=== PATIENT | female | born 1935 | race Caucasian/White ===

== ENCOUNTER 2016-08-23 23:39 | Emergency (ER) | payer MEDICARE, BC ==
--- NOTE | 2016-08-24 01:56 | EDM.PDOC ---
ED HPI GENERAL MEDICAL PROBLEM - General Chief Complaint: ENT Problem Stated Complaint: NOSE BLEED Time Seen by Provider: 08/24/16 01:52 Source of Information: Reports: Patient, Family, RN Notes Reviewed History Limitations: Reports: No Limitations - History of Present Illness INITIAL COMMENTS - FREE TEXT/NARRATIVE: 80-year-old female presents emergency department day complaint of nosebleed she does take Coumadin recently had her dose increased last time the INR was checked was 1 month ago this particular nosebleed started earlier today she has blown several times does have a nose clamp on place for extended period time as well unfortunately she's been unable to stop the nosebleed denies pain Pain Score (Numeric/FACES): 0 - Related Data Allergies Allergy/AdvReac Type Severity Reaction Status Date / Time amoxicillin trihydrate Allergy Diarrhea Verified 04/01/13 12:41 [From Augmentin] hydrochlorothiazide Allergy Hives Verified 04/01/13 12:41 neomycin [Neomycin] Allergy Cannot Verified 04/01/13 12:41 Remember potassium clavulanate Allergy Diarrhea Verified 04/01/13 12:41 [From Augmentin] Home Meds: Home Meds Aspirin 81 mg PO DAILY 03/30/13 [History] Calcium Carbonate 500 mg PO TID 03/30/13 [History] Cholecalciferol 1 cap PO DAILY 03/30/13 [History] Cinnamon 1 tab PO ASDIRECTED 03/30/13 [History] Flaxseed 1 tab PO BID 03/30/13 [History] Npgpbdoarwu-Gdbxqajcu-Hpur-Mn 1 cap PO DAILY 03/30/13 [History] Multiple Vitamin 1 tab PO DAILY 03/30/13 [History] [place] 3 1,000 mg PO DAILY 03/30/13 [History] Red Yeast Rice Extract 600 mg PO DAILY 03/30/13 [History] Tramadol Hcl 50 mg PO QID PRN 03/30/13 [History] Warfarin Sodium 10 mg PO DAILY 03/30/13 [History] Past Medical History Respiratory History: Reports: PE Genitourinary History: Reports: Renal Calculus Musculoskeletal History: Reports: Fracture 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 - Past Surgical History GI Surgical History: Reports: Appendectomy, Hernia, Inguinal Musculoskeletal Surgical History: Reports: Knee Replacement Social & Family History - Tobacco Use Smoking Status *Q: Never Smoker Second Hand Smoke Exposure: No - Alcohol Use Days Per Week of Alcohol Use: 0 - Recreational Drug Use Recreational Drug Use: No ED ROS ENT - Review of Systems Review Of Systems: See Below Constitutional: Reports: No Symptoms HEENT: Reports: Ear Discharge Respiratory: Reports: No Symptoms Cardiovascular: Reports: No Symptoms ED EXAM, ENT - Physical Exam Exam: See Below Text/Narrative:: Initial examination of the nose after blowing out several clots I cannot appreciate the source of bleeding is family through the left nare Exam Limited By: No Limitations General Appearance: Alert, Moderate Distress (. He doesn't need to be seen to go to detox does he you can just the way second your telling me to go to [place] they will not accept anybody everybody's ever undergoes department has to go through the emergency department as well as our your telling me yet we don't have a patient he is his of his family member is probably the) ED ENT PROCEDURES - Epistaxis Procedure Indication: Epistaxis Recent anticoagulants/antiplatlets: Yes Uncontrolled HTN: No Recent septal/nasal surgery: No Site of bleeding: Left Nare Clearing of clots: Patient Blew Nose Ice pack to area: No Anterior Packing: Nasal Tampon Posterior packing: Long Nasal Tampon Complications: No Course - Vital Signs Last Recorded V/S: Last Vital Signs Temp 96.2 F 08/24/16 01:30 Pulse 80 08/24/16 02:05 Resp 16 08/24/16 02:05 BP 144/95 H 08/24/16 02:05 Pulse Ox 94 L 08/24/16 02:05 - Orders/Labs/Meds Labs: Laboratory Tests 08/24/16 08/24/16 Range/Units 02:04 02:04 WBC 7.0 (4.5-11.0) K/uL RBC 4.58 (3.30-5.50) M/uL Hgb 14.2 (12.0-15.0) g/dL Hct 43.5 (36.0-48.0) % MCV 95 (80-98) fL MCH 31 (27-31) pg MCHC 33 (32-36) % Plt Count 240 (150-400) K/uL Neut % (Auto) 52 (36-66) % Lymph % (Auto) 31 (24-44) % [place] % (Auto) 12 H (2-6) % Eos % (Auto) 5 H (2-4) % Baso % (Auto) 1 (0-1) % PT 34.3 H (9.5-12.0) sec INR 3.06 H (0.80-1.20) Departure - Departure Time of Disposition: 02:57 Disposition: Home, Self-Care 01 Condition: Good Clinical Impression: Epistaxis - Discharge Information Forms: ED Department Discharge Additional Instructions: Hold your Coumadin until reevaluated by the Coumadin nurse, please follow-up with your primary care provider on Friday or Friday for reevaluation of nosebleeds - Assessment/Plan Plan: Assessment Acuity = acute Site and laterality = epistaxis complicating the patient with 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 This note was dictated using [employer] voice recognition software please call with any questions.
[2016-08-24 03:14] VITALS: BP 155/82
[2016-08-24] MEDS ORDERED: Oxymetazoline 0.05% Nasal Spray 15 ML Bottle ONE (03:23)
[2016-08-24] MEDS ORDERED: Oxymetazoline 0.05% Nasal Spray 15 ML Bottle NAS ONE (03:30)
== END 2016-08-24 03:17 | disposition home or self-care (01) ==
LOC: JP.ED 23:39
PROC: 2Y41X5Z Packing of Nasal Region using Packing Material (ICD-10-PCS; principal; 2016-08-23)
DX: R04.0 Epistaxis (principal); Z88.1 Allergy status to other antibiotic agents; Z88.8 Allergy status to other drugs, medicaments and biological substances; Z79.82 Long term (current) use of aspirin; Z79.899 Other long term (current) drug therapy; Z96.659 Presence of unspecified artificial knee joint; Z90.49 Acquired absence of other specified parts of digestive tract; Z79.01 Long term (current) use of anticoagulants
CPT/HCPCS: 30901; 30903; 30905; 36415; 85025; 85610; 99282-25; 99283-25

== ENCOUNTER 2016-11-15 22:59 | Emergency (ER) | payer MEDICARE, BC ==
[2016-11-15 23:32] VITALS: BP 176/102
--- NOTE | 2016-11-16 01:02 | EDM.PDOC ---
ED HPI GENERAL MEDICAL PROBLEM - General Chief Complaint: ENT Problem Stated Complaint: BLOODY NOSE Time Seen by Provider: 11/15/16 23:12 Source of Information: Reports: Patient History Limitations: Reports: Physical Impairment - History of Present Illness INITIAL COMMENTS - FREE TEXT/NARRATIVE: This patient comes in because of a recurrent nosebleed. Her nose has bled a couple of times over the past few days but she's always been able to stop it by putting pressure on the end of her nose. Today it doesn't seem to want to stop. She did have a bleed some time in the past and had to have the thing packed she said back then the balloons didn't work. She takes Coumadin because of history of previous pulmonary emboli. Yesterday her INR was 2.8 and her provider had her stop the Coumadin but she was not given instructions when to restart it. 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) - Related Data Allergies Allergy/AdvReac Type Severity Reaction Status Date / Time amoxicillin trihydrate Allergy Diarrhea Verified 11/15/16 23:09 [From Augmentin] hydrochlorothiazide Allergy Hives Verified 11/15/16 23:09 neomycin [Neomycin] Allergy Cannot Verified 11/15/16 23:09 Remember potassium clavulanate Allergy Diarrhea Verified 11/15/16 23:09 [From Augmentin] Home Meds: Home Meds Aspirin 81 mg PO DAILY 03/30/13 [History] Calcium Carbonate 500 mg PO TID 03/30/13 [History] Cholecalciferol 1 cap PO DAILY 03/30/13 [History] Cinnamon 1 tab PO ASDIRECTED 03/30/13 [History] Flaxseed 1 tab PO BID 03/30/13 [History] Gdehnkzjgkw-Caceatvjw-Bxmr-Mn 1 cap PO DAILY 03/30/13 [History] Multiple Vitamin 1 tab PO DAILY 03/30/13 [History] [place] 3 1,000 mg PO DAILY 03/30/13 [History] Red Yeast Rice Extract 600 mg PO DAILY 03/30/13 [History] Tramadol Hcl 50 mg PO QID PRN 03/30/13 [History] Warfarin Sodium 10 mg PO DAILY 03/30/13 [History] Past Medical History HEENT History: Reports: Epistaxis, Impaired Vision Respiratory History: Reports: PE Gastrointestinal History: Reports: None Genitourinary History: Reports: Renal Calculus [employer] History: Reports: Musculoskeletal History: Reports: Fracture Oncologic (Cancer) History: Reports: Other (See Below) 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 ED EXAM, ENT - Physical Exam Exam: See Below Exam Limited By: No Limitations General Appearance: Alert, WD/WN, Moderate Distress Nose: Other (She's having a fairly brisk bleed from the left nostril exam is difficult because she's constantly wiping her nose. Eventually I did manage to clean off the septum in the left nostril and note that there was no bleeding from there. All blood is coming from posteriorly.) Course - Vital Signs Last Recorded V/S: Last Vital Signs Temp 36.1 C 11/15/16 23:05 Pulse 93 11/15/16 23:29 Resp 18 11/15/16 23:29 BP 176/102 H 11/15/16 23:29 Pulse Ox 93 L 11/15/16 23:29 - Re-Assessments/Exams Free Text/Narrative Re-Assessment/Exam: 11/16/16 07:04 A posterior epistaxis was identified. A 7.5 cm rapid Rhino was inserted. She did have some pain on insertion of last couple of centimeters seemed to tolerate this well. The balloon was inflated until the portal the point of discomfort and bleeding stopped. She was observed for about an hour and had no more bleeding. I contacted Dr. Buckner and he felt it would be okay to leave it in until Friday when he could see her in clinic. He suggested we put her on antibiotics also. He suggested amoxicillin and ampicillin but she is allergic to that so I put her on azithromycin Departure - Departure Time of Disposition: 00:57 Disposition: Home, Self-Care 01 Condition: Fair Clinical Impression: Posterior epistaxis - Discharge Information Instructions: Nosebleed, [id number] Referrals: PCP,None [Primary Care Provider] - Forms: ED Department Discharge Additional Instructions: You will need to follow-up with an ear nose and throat doctor (ENT) on Friday to get the packing removed. I spoke with at the [facility] in [place] and she or one of his colleagues can see you on Friday morning. The clinic is located at [address] [place] [address]. If you wish to see an ENT doctor somewhere else you are welcome to. You should take an antibiotic to prevent an infection. I have prescribed azithromycin 250 mg once daily. Try to contact the Coumadin nurse tomorrow. If you're unable to do this then go ahead and restart your usual dose And follow-up with the Coumadin nurse as planned
== END 2016-11-16 01:11 | disposition home or self-care (01) ==
LOC: JP.ED 22:59
DX: R04.0 Epistaxis (principal); Z87.442 Personal history of urinary calculi; Z96.659 Presence of unspecified artificial knee joint; Z90.49 Acquired absence of other specified parts of digestive tract; Z98.890 Other specified postprocedural states; Z79.82 Long term (current) use of aspirin; Z79.899 Other long term (current) drug therapy; Z88.1 Allergy status to other antibiotic agents; Z88.8 Allergy status to other drugs, medicaments and biological substances
CPT/HCPCS: 30903; 99283; A4217

== ENCOUNTER 2019-02-27 19:02 | Emergency (ER) | payer MEDICARE, BC ==
--- NOTE | 2019-02-27 20:28 | EDM.PDOC ---
ED HPI GENERAL MEDICAL PROBLEM - General Chief Complaint: Fever Stated Complaint: POSSIBLE CELLULITIS AND FEVER Time Seen by Provider: 02/27/19 20:19 Source of Information: Reports: Patient History Limitations: Reports: No Limitations - History of Present Illness INITIAL COMMENTS - FREE TEXT/NARRATIVE: Patient presents for evaluation of progressive right facial redness and swelling since earlier this week. She has an upper denture plate and when placing it in her mouth earlier this week, it slipped and apparently scraped an area of the front part of her gums. Since that time she's had increasing pain and redness and swelling. She was seen in the clinic yesterday and started on clindamycin 300 mg 3 times daily but her symptoms have continued to progress despite being on those antibiotics. She's had some low-grade temperatures in the 99 range although patient and family states that she normally has a much lower normal temperature. Because of the increasing discomfort, she presented tonight. Onset: Gradual Duration: Day(s): (4) Quality: Reports: Ache, Dull Severity: Moderate Improves with: Reports: None Worsens with: Reports: Eating Associated Symptoms: Reports: Fever/Chills, Malaise - Related Data Allergies Allergy/AdvReac Type Severity Reaction Status Date / Time amoxicillin trihydrate Allergy Diarrhea Verified 02/27/19 20:11 [From Augmentin] hydrochlorothiazide Allergy Hives Verified 02/27/19 20:11 neomycin [Neomycin] Allergy Cannot Verified 02/27/19 20:11 Remember potassium clavulanate Allergy Diarrhea Verified 02/27/19 20:11 [From Augmentin] Home Meds: Home Meds Aspirin 81 mg PO DAILY 03/30/13 [History] Calcium Carbonate 1,000 mg PO BID 03/30/13 [History] Cholecalciferol 1 cap PO DAILY 03/30/13 [History] Cinnamon 1 tab PO ASDIRECTED 03/30/13 [History] Flaxseed 1 tab PO BID 03/30/13 [History] Bhebfxbzxgl-Mndqbuznk-Szbn-Mn 1 cap PO DAILY 03/30/13 [History] Multiple Vitamin 1 tab PO DAILY 03/30/13 [History] [place] 3 1,000 mg PO DAILY 03/30/13 [History] Red Yeast Rice Extract 600 mg PO DAILY 03/30/13 [History] Warfarin Sodium 1.5 tab PO DAILY 03/30/13 [History] Clindamycin HCl [Cleocin] 300 mg PO Q8H 02/27/19 [History] Metoprolol Tartrate 1 tab PO BID 02/27/19 [History] Past Medical History HEENT History: Reports: Epistaxis, Impaired Vision Cardiovascular History: Reports: Blood Clots/VTE/DVT, Hypertension Respiratory History: Reports: PE Gastrointestinal History: Reports: None Genitourinary History: Reports: Renal Calculus [employer] History: Reports: Musculoskeletal History: Reports: Fracture Neurological History: Reports: Migraines Endocrine/Metabolic History: Reports: Other (See Below) Other Endocrine/Metabolic History: goiter removed from thyroid Hematologic History: Reports: Anticoagulation Therapy Oncologic (Cancer) History: Reports: Other (See Below) 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 partial hysterectomy Musculoskeletal Surgical History: Reports: Knee Replacement Dermatological Surgical History: Reports: None Social & Family History - Tobacco Use Smoking Status *Q: Unknown Ever Smoked - Caffeine Use Caffeine Use: Reports: Coffee, Soda ED ROS ENT - Review of Systems Review Of Systems: See Below Constitutional: Reports: Fever, Chills, Malaise HEENT: Reports: Dental Pain Respiratory: Reports: No Symptoms Cardiovascular: Reports: No Symptoms Skin: Reports: Erythema (Right maxillary region.) ED EXAM, ENT - Physical Exam Exam: See Below Exam Limited By: No Limitations General Appearance: Alert, Mild Distress Mouth/Throat: Gum Swelling, Oral Ulcers (There are several small white shallow ulcerations along the gum and buccal mucosa region of the right maxillary zone.) . No: Bleeding, Lip Swelling, Peritonsillar Mass, Throat Swelling Neck: Normal Inspection. No: Lymphadenopathy (R), Lymphadenopathy (L) Respiratory/Chest: No Respiratory Distress Cardiovascular: Normal Peripheral Pulses Skin: Erythema (Right maxillary region extending up into the lower eyelid of the right eye and laterally toward the right christianity area.), Increased Warmth Course - Vital Signs Last Recorded V/S: Last Vital Signs Temp 37.0 C 02/27/19 22:05 Pulse 80 02/27/19 22:05 Resp 18 02/27/19 22:05 BP 159/94 H 02/27/19 22:05 Pulse Ox 95 02/27/19 22:05 - Orders/Labs/Meds Orders: Active Orders 24 hr Category Date Time Status Saline Lock Insert [OM.PC] Routine Oth 02/27/19 20:33 Ordered Labs: Laboratory Tests 02/27/19 02/27/19 Range/Units 20:49 20:49 WBC 6.4 (4.5-11.0) K/uL RBC 5.35 (3.30-5.50) M/uL Hgb 16.2 H (12.0-15.0) g/dL Hct 50.4 H (36.0-48.0) % MCV 94 (80-98) fL MCH 30 (27-31) pg MCHC 32 (32-36) % Plt Count 225 (150-400) K/uL Neut % (Auto) 61 (36-66) % Lymph % (Auto) 20 L (24-44) % [place] % (Auto) 17 H (2-6) % Eos % (Auto) 1 L (2-4) % Baso % (Auto) 1 (0-1) % Sodium 137 L (140-148) mmol/L Potassium 4.0 (3.6-5.2) mmol/L Chloride 100 (100-108) mmol/L Carbon Dioxide 28 (21-32) mmol/L Anion Gap 13.0 (5.0-14.0) mmol/L BUN 18 (7-18) mg/dL Creatinine 0.8 (0.6-1.0) mg/dL Est Cr Clr Drug Dosing 36.93 mL/min Estimated GFR (MDRD) > 60 (>60) Glucose 103 (74-106) mg/dL Calcium 9.9 D (8.5-10.1) mg/dL C-Reactive Protein 0.37 H (0.0-0.3) mg/dL Meds: Medications Discontinued Medications Generic Name Dose Route Start Last Admin Trade Name Freq PRN Reason Stop Dose Admin Clindamycin Phosphate 900 mg/ 106 mls @ 200 mls/hr 02/27/19 20:38 02/27/19 20 :57 Sodium Chloride IV 02/27/19 21:09 200 mls/hr ONETIME ONE Administration Sodium Chloride 10 ml 02/27/19 20:33 02/27/19 21:19 Saline Flush FLUSH 10 ml ASDIRECTED PRN Administration Keep Vein Open - Re-Assessments/Exams Free Text/Narrative Re-Assessment/Exam: 02/27/19 20:39 Patient will receive clindamycin 900 mg IV while other lab tests are being processed and she gets her CT scan. 02/28/19 02:42 CT scan of maxillofacial area shows no evidence of abscess formation. There is inflammatory change up to the lower right eyelid region. I reviewed this as well as her other lab results which are non-concerning. I recommend she continue her current clindamycin dosing. One reason things may be different in terms of swelling on her face is that she currently is taking warfarin as well. The combination of trauma, infection, anticoagulant use may all be ganging up on her. I recommend warm salt water mouth swishes 6 times a day regularly. Follow up with clinic doctor next week by telephone, in particular if not feeling better. If she feels worse in any way return to this department and she may need to be admitted for IV antibiotics. One of her daughters asked about initiating probiotics given her use of the antibiotic and I think that is reasonable. She was discharged in stable condition. Departure - Departure Time of Disposition: 23:03 Disposition: Home, Self-Care 01 Condition: Good Clinical Impression: nursing home current use of anticoagulant Cellulitis Qualifiers: Site of cellulitis: face Qualified Code(s): L03.211 - Cellulitis of face - Discharge Information *PRESCRIPTION DRUG MONITORING PROGRAM REVIEWED*: Not Applicable *COPY OF PRESCRIPTION DRUG MONITORING REPORT IN PATIENT VENANCIO: Not Applicable Instructions: Cellulitis, Adult, [id number] Referrals: PCP,None [Primary Care Provider] - Forms: ED Department Discharge Additional Instructions: Continue current antibiotics. Start probiotics in addition as discussed. Try warm moist heat to the facial area to see if that improves how it feels. He should keep your upper plate out to avoid irritation of the other areas. Warm salt water two-minute swishes in the mouth 6 times a day. Recheck in person or by phone with Dr. Ghada Thomas next week. Return to ER if feeling worse in anyway. Sepsis Event Note - Focused Exam Vital Signs: Vital Signs Temp Pulse Resp BP Pulse Ox 02/27/19 22:05 37.0 C 80 18 159/94 H 95 02/27/19 20:47 36.7 C 75 17 180/95 H 94 L 02/27/19 20:28 36.7 C 75 17 180/95 H 94 L Date Exam was Performed: 02/28/19 Time Exam was Performed: 02:39 - My Orders Last 24 Hours: My Active Orders 02/27/19 20:33 Saline Lock Insert [OM.PC] Routine - Assessment/Plan Last 24 Hours: My Active Orders 02/27/19 20:33 Saline Lock Insert [OM.PC] Routine
[2019-02-27] MEDS ORDERED: Sodium Chloride 0.9% 10 ML Syringe FLUSH PRN (20:33)
[2019-02-27] MEDS ORDERED: Clindamycin Phosphate 900 MG in Sodium Chloride 0.9% 100 ML IV ONE (20:38)
--- NOTE | 2019-02-27 21:52 | CRLCT ---
INDICATION: Right-sided facial swelling COMPARISON: 05/21/2015 TECHNIQUE: CT examination of the facial bones is performed without contrast enhancement using spiral technique. 2-mm thick axial, coronal and sagittal sections were obtained from the data. Please note that all CT scans at this facility use dose modulation, iterative reconstruction, and/or weight-based dosing when appropriate to reduce radiation dose to as low as reasonably achievable. FINDINGS: There is mild right maxillary soft tissue swelling extending into the right lower eyelid, without any focal fluid collection, gas in the soft tissues, or radiopaque foreign body. The findings are that of mild right maxillary cellulitis. There is no sign of any maxillary dental disease to associated with the swelling. In fact, there are no remaining maxillary teeth. The previously seen moderate contusion and hematoma of the left superior maxilla, left lower eyelid, and left upper eyelid has completely resolved. There is no sign of facial fracture on today`s study. The orbits, zygomatic arches, nasal bones, maxillae, and mandible are normal in appearance. 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 Again seen is a small mucous retention cyst along the medial wall of the left maxillary sinus. The rest of the paranasal sinuses are clear. The mastoids are clear. The intraorbital soft tissue structures are unremarkable. The airway structures are normal in appearance. The visualized brain is normal in appearance for the patient`s age. IMPRESSION: Mild cellulitis of the right maxillary region extending into the right lower eyelid, with no sign of any abscess. Resolution of the previously seen left superior maxillary and upper and lower eyelid hematoma and contusion. Please note that all CT scans at this facility use dose modulation, iterative reconstruction, and/or weight-based dosing when appropriate to reduce radiation dose to as low as reasonably achievable. Dictated by Cristian Hunter MD @ Feb 27 2019 9:43PM Signed by Dr. Cristian Hunter @ Feb 27 2019 9:51PM
[2019-02-27 22:06] VITALS: BP 159/94; PULSE 80
== END 2019-02-27 23:16 | disposition home or self-care (01) ==
LOC: JP.ED 19:02
DX: L03.211 Cellulitis of face (principal); I10 Essential (primary) hypertension; Z79.01 Long term (current) use of anticoagulants; Z88.8 Allergy status to other drugs, medicaments and biological substances; Z79.82 Long term (current) use of aspirin; Z79.899 Other long term (current) drug therapy; Z90.49 Acquired absence of other specified parts of digestive tract; Z90.710 Acquired absence of both cervix and uterus; Z88.1 Allergy status to other antibiotic agents
CPT/HCPCS: 36415; 70486; 80048; 85025; 86140; 96365; 99284; J3490; J7050

== ENCOUNTER 2019-03-01 10:59 | Inpatient (IN) | payer MEDICARE, BC ==
[2019-03-01] MEDS ORDERED: Ondansetron 4 MG/2 ML SDV IV PRN (11:50)
[2019-03-01] MEDS ORDERED: Sodium Chloride 0.9% 10 ML Syringe FLUSH PRN (11:50)
--- NOTE | 2019-03-01 11:58 | PCM.HP.2 ---
H&P History of Present Illness - General Date of Service: 03/01/19 Admit Problem/Dx: Admission Diagnosis/Problem Admission Diagnosis/Problem Cellulitis Source of Information: Patient, Family, Provider, RN Notes Reviewed History Limitations: Reports: No Limitations - History of Present Illness Initial Comments - Free Text/Narative: Ms. Marie is an 83-year-old woman who was admitted as a direct admission from the clinic for management of progressive cellulitis of the right face despite oral antibiotic therapy. 6 days ago she injured the inner aspect of her gum on the right side with her dentures. Within 24 hours she developed a red area over her right cheek. 3 days prior to admission she was seen and evaluated in the walk-in clinic and felt to have cellulitis of the right face. She was started on oral antibiotic therapy with clindamycin. The area of erythema expanded and she was seen 2 days prior to admission in the emergency department where she received 1 dose of IV clindamycin as well as IV fluids for hydration. She has remained on oral antibiotic therapy with clindamycin up until the time of admission. She presented to the clinic today and was noted to have progression of the cellulitis despite oral antibiotic therapy. She has been referred for hospital admission and IV antibiotic therapy. Right Face/Facial Pain Score (Numeric/FACES): 5 - Related Data Allergies/Adverse Reactions: Allergies Allergy/AdvReac Type Severity Reaction Status Date / Time amoxicillin trihydrate Allergy Diarrhea Verified 02/27/19 20:11 [From Augmentin] hydrochlorothiazide Allergy Hives Verified 02/27/19 20:11 neomycin [Neomycin] Allergy Cannot Verified 02/27/19 20:11 Remember potassium clavulanate Allergy Diarrhea Verified 02/27/19 20:11 [From Augmentin] Home Medications: Home Meds Aspirin 81 mg PO DAILY 03/30/13 [History] Calcium Carbonate 1,000 mg PO BID 03/30/13 [History] Cholecalciferol 1 cap PO DAILY 03/30/13 [History] Cinnamon 1 tab PO ASDIRECTED 03/30/13 [History] Flaxseed 1 tab PO BID 03/30/13 [History] Dcamqzbdafw-Mjzaqbwiu-Fxvb-Mn 1 cap PO DAILY 03/30/13 [History] Multiple Vitamin 1 tab PO DAILY 03/30/13 [History] Rankin 3 1,000 mg PO DAILY 03/30/13 [History] Red Yeast Rice Extract 600 mg PO DAILY 03/30/13 [History] Warfarin Sodium 1.5 tab PO DAILY 03/30/13 [History] Metoprolol Tartrate 1 tab PO BID 02/27/19 [History] clindamycin HCL [Cleocin] 300 mg PO Q8H 02/27/19 [History] Past Medical History HEENT History: Reports: Epistaxis, Impaired Vision Cardiovascular History: Reports: Blood Clots/VTE/DVT, Hypertension Respiratory History: Reports: PE Gastrointestinal History: Reports: None Genitourinary History: Reports: Renal Calculus CERTIFIED LOW VISION THERAPIST History: Reports: Musculoskeletal History: Reports: Fracture Neurological History: Reports: Migraines Endocrine/Metabolic History: Reports: Other (See Below) Other Endocrine/Metabolic History: goiter removed from thyroid Hematologic History: Reports: Anticoagulation Therapy Oncologic (Cancer) History: Reports: Other (See Below) 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 partial hysterectomy Musculoskeletal Surgical History: Reports: Knee Replacement Dermatological Surgical History: Reports: None Social & Family History - Tobacco Use Smoking Status *Q: Never Smoker - Caffeine Use Caffeine Use: Reports: Coffee - Recreational Drug Use Recreational Drug Use: No H&P Review of Systems - Review of Systems: Review Of Systems: See Below General: Reports: Malaise, Weakness, Decreased Appetite. Denies: Fever, Chills , Diaphoresis HEENT: Reports: Other (Swelling and erythema of the right face) Pulmonary: Reports: No Symptoms Cardiovascular: Reports: No Symptoms Gastrointestinal: Reports: No Symptoms Genitourinary: Reports: No Symptoms Musculoskeletal: Reports: No Symptoms Skin: Reports: Other (Swelling and erythema of the right face) Psychiatric: Reports: No Symptoms Neurological: Reports: No Symptoms Hematologic/Lymphatic: Reports: No Symptoms Immunologic: Reports: No Symptoms Exam - Exam Exam: See Below - Vital Signs Weight: 197 lb - Exam Quality Assessment: DVT Prophylaxis General: Alert, Oriented, Cooperative, Moderate Distress HEENT: Conjunctiva Clear, Hearing Intact, Mucosa Moist & [place], Normal Nasal Septum, Posterior Pharynx Clear, Pupils Equal Neck: Supple, Trachea Midline, +2 Carotid Pulse wo Bruit Lungs: Clear to Auscultation, Normal Respiratory Effort Cardiovascular: Regular Rate, Regular Rhythm, Normal S1, Normal S2. No: Systolic Murmur, Diastolic Murmur GI/Abdominal Exam: Soft, Non-Tender, No Organomegaly, No Distention Back Exam: Normal Inspection, Full Range of Motion Extremities: Non-Tender, No Pedal Edema Skin: Warm, Other (Swelling and erythema of the right face) Neurological: Cranial Nerves Intact, Strength Equal Bilateral, Normal Speech, Normal Tone, Sensation Intact. No: Focal Deficit Neuro Extensive - Mental Status: Alert, Oriented x3, Normal Mood/Affect, Normal Cognition, Memory Intact - Patient Data Result Diagrams: 03/01/19 11:50 03/01/19 12:05 Sepsis Event Note - Evaluation Sepsis Screening Result: No Definite Risk *Q Meaningful Use (ADM) - VTE *Q VTE Pharmacological Contraindications *Q: High INR Value - VTE Risk Assess *Q Each Risk Factor Represents 1 Point: None, Obesity ( BMI > 25 kg/m2) Total Score 1 Point Risk Factors: 1 Each Risk Factor Represents 2 Points: None Total Score 2 Point Risk Factors: 0 Each Risk Factor Represents 3 Points: Age 75 Years or Greater Total Score 3 Point Risk Factors: 3 Each Risk Factor Represents 5 Points: None Total Score 5 Point Risk Factors: 0 Venous Thromboembolism Risk Factor Score *Q: 4 Problem List Initiated/Reviewed/Updated: Yes Orders Last 24hrs: Active Orders 24 hr Category Date Time Status Patient Status [ADT] Routine ADT 03/01/19 11:50 Ordered Ambulate [RC] QID Care 03/01/19 11:50 Ordered Height and Weight [RC] DAILY Care 03/01/19 11:50 Ordered Intake and Output [RC] QSHIFT Care 03/01/19 11:50 Ordered Notify Provider Vital Signs [RC] ASDIRECTED Care 03/01/19 11:50 Ordered Oxygen Therapy [RC] PRN Care 03/01/19 11:50 Ordered Peripheral IV Care [RC] . DIRECTED Care 03/01/19 11:54 Ordered Up With Assistance [RC] ASDIRECTED Care 03/01/19 11:50 Ordered Up to Chair [RC] QID Care 03/01/19 11:50 Ordered VTE/DVT Education [RC] Per Unit Routine Care 03/01/19 11:50 Ordered Vital Signs [RC] Q4H Care 03/01/19 11:50 Ordered Regular Diet [DIET] Diet 03/01/19 Lunch Ordered Max Facial Sinus w Cont [CT] Stat Exams 03/01/19 11:56 Ordered CBC WITH AUTO DIFF [HEME] Stat Lab 03/01/19 11:50 Ordered COMPREHENSIVE METABOLIC PN,CMP [CHEM] Stat Lab 03/01/19 11:50 Ordered CULTURE BLOOD [BC] Stat Lab 03/01/19 11:50 Ordered CULTURE BLOOD [BC] Stat Lab 03/01/19 11:50 Ordered INR,PT,PROTHROMBIN TIME [COAG] Stat Lab 03/01/19 11:50 Ordered Acetaminophen [Tylenol] Med 03/01/19 11:50 Ordered 650 mg PO Q4H PRN Aspirin Med 03/02/19 09:00 Ordered 81 mg PO DAILY Lactobacillus Rhamnosus GG [Culturelle] Med 03/01/19 12:00 Ordered 1 cap PO BID Meropenem [Merrem] 1 gm Med 03/01/19 12:00 Ordered Sodium Chloride 0.9% [Normal Saline] 100 ml IV Q8H Metoprolol Tartrate [Lopressor] Med 03/01/19 21:00 Ordered 25 mg PO BID Ondansetron [Zofran] Med 03/01/19 11:50 Ordered 4 mg IV Q4H PRN Sodium Chloride 0.9% @ 125 MLS/HR (1000ml) Med 03/01/19 12:00 Ordered Sodium Chloride 0.9% [Normal Saline] 1,000 ml IV ASDIRECTED Sodium Chloride 0.9% [Saline Flush] Med 03/01/19 11:50 Ordered 10 ml FLUSH ASDIRECTED PRN Vancomycin Med 03/01/19 12:00 Ordered 1 gm IV .PHARMACY TO DOSE Warfarin Sodium Med 03/02/19 09:00 Ordered 1.5 tab PO DAILY oxyCODONE Med 03/01/19 11:50 Ordered 5 mg PO Q4H PRN Blood Culture x2 Reflex Set [OM.PC] Stat Oth 03/01/19 11:54 Ordered Peripheral IV Insertion Adult [OM.PC] Routine Oth 03/01/19 11:50 Ordered VTE Pharmacological Contraindications [AST] Per Unit Oth 03/01/19 11:50 Ordered Routine Resuscitation Status Routine Resus Stat 03/01/19 11:50 Ordered Assessment/Plan Comment:: ASSESSMENT AND PLAN CELLULITIS RIGHT FACE- she has failed outpatient management with oral antibiotic therapy. Progression of cellulitis despite oral clindamycin over the past [address] scan obtained after admission shows no evidence of abscess at this time. No evidence of sepsis associated with cellulitis. -Blood cultures pending -IV vancomycin and meropenem, pending culture results MAINTENANCE ISSUES -DVT prophylaxis; therapy with warfarin should provide adequate DVT prophylaxis -GI prophylaxis; continue outpatient PPI therapy -Resendiz catheter; not indicated -Nutrition; regular diet -Nicotine dependence; not required CODE STATUS-FULL CODE ADMISSION STATUS-patient will be admitted to inpatient status, expect at least a 2 night hospital stay for evaluation and management of problems as outlined above. At the time of this admission I do not reasonably expected evaluation and management of this problem will require more than a 96 hour hospital stay. DISPOSITION-anticipate discharge to home after the hospital stay. PRIMARY CARE PROVIDER-Dr. Parra - Mortality Measure Prognosis:: Good
[2019-03-01] MEDS ORDERED: VANCOMYCIN IV SCH (12:00)
[2019-03-01] MEDS: Sodium Chloride 0.9% 1,000 ML IV SCH ×2 (12:12→21:28)
[2019-03-01] MEDS ORDERED: Iopamidol 612 MG/ML 100 ML Bottle IV PRN (12:12)
[2019-03-01] MEDS ORDERED: Sodium Chloride 0.9% 100 ML IV SCH (12:15)
[2019-03-01] MEDS: oxyCODONE 5 MG Tab PO PRN ×2 (12:17→16:10)
[2019-03-01] MEDS: Lactobacillus Rhamnosus GG (Probiotic) Cap PO SCH ×2 (12:38→21:20)
[2019-03-01] MEDS ORDERED: Vancomycin 1.8 GM in Sodium Chloride 0.9% 250 ML IV ONE (13:00)
--- NOTE | 2019-03-01 13:02 | CT ---
Max Facial Sinus w Cont CLINICAL HISTORY: Increasing facial cellulitis TECHNIQUE: Multiple contiguous axial sections were obtained through the face and paranasal sinuses with coronal and sagittal reconstructions post IV contrast enhancement. Auto dosage reduction and iterative reconstruction techniques employed. COMPARISON: Noncontrast study 02/27/2019 FINDINGS: There is increasing soft tissue edema in the right the inferior preorbital soft tissues and righ. No focal mass or fluid collection is identified. There is some very minimal mucosal thickening in the dependent portion of the right maxillary sinus. This is unchanged from prior study. There are a few small submandibular lymph nodes there is mild asymmetric fullness of the right submandibular salivary gland. IMPRESSION: Increasing subcutaneous edema in the right face from the lower periorbital region to the submandibular region on the right. Mild asymmetric enlargement of the right submandibular gland. This is not imaged on the prior study. Lateral margin is slightly ill-defined. Inflammation of the salivary gland is excluded. No abscess identified
[2019-03-01] MEDS: Metoprolol Tartrate 25 MG Tab PO SCH (21:20)
[2019-03-01] MEDS: Acetaminophen 325 MG Tab PO PRN (21:21)
[2019-03-02] MEDS: Sodium Chloride 0.9% 1,000 ML IV SCH (05:16)
[2019-03-02] MEDS: Metoprolol Tartrate 25 MG Tab PO SCH ×2 (08:07→21:49)
[2019-03-02] MEDS: Aspirin 81 MG Tab.EC PO SCH (08:07)
[2019-03-02] MEDS: Lactobacillus Rhamnosus GG (Probiotic) Cap PO SCH ×2 (08:07→21:49)
[2019-03-02] MEDS ORDERED: WARFARIN SODIUM PO SCH (09:00)
--- NOTE | 2019-03-02 10:11 | PCM.PN ---
- General Info Date of Service: 03/02/19 Subjective Update: Ms. Marie has been stable since admission, no significant improvement noted in cellulitis. Headache has improved, vital signs stable, and she has remained afebrile. - Review of Systems General: Reports: Weakness, Malaise. Denies: Fever, Chills HEENT: Reports: Headaches Pulmonary: Reports: No Symptoms Cardiovascular: Reports: No Symptoms Gastrointestinal: Reports: Constipation. Denies: Abdominal Pain, Decreased Appetite, Diarrhea, Difficulty Swallowing, Nausea, Vomiting Genitourinary: Reports: No Symptoms - Patient Data Vitals - Most Recent: Last Vital Signs Temp 96.1 F 03/02/19 07:00 Pulse 86 03/02/19 08:07 Resp 18 03/02/19 07:00 BP 186/92 H 03/02/19 08:07 Pulse Ox 93 L 03/02/19 03:00 Weight - Most Recent: 197 lb 0.011 oz I&O - Last 24 Hours: Intake & Output 03/01/19 03/02/19 03/02/19 22:59 06:59 14:59 Intake Total 956 1450 Balance 956 1450 Lab Results Last 24 Hours: Laboratory Results - last 24 hr 03/01/19 03/01/19 03/01/19 Range/Units 11:50 12:05 12:05 WBC 6.4 (4.5-11.0) K/uL RBC 5.01 (3.30-5.50) M/uL Hgb 15.6 H (12.0-15.0) g/dL Hct 47.5 (36.0-48.0) % MCV 95 (80-98) fL MCH 31 (27-31) pg MCHC 33 (32-36) % Plt Count 206 (150-400) K/uL Neut % (Auto) 66 (36-66) % Lymph % (Auto) 16 L (24-44) % [place] % (Auto) 16 H (2-6) % Eos % (Auto) 1 L (2-4) % Baso % (Auto) 1 (0-1) % PT 29.4 H (9.5-12.0) sec INR 2.89 H (0.80-1.20) Sodium 138 L (140-148) mmol/L Potassium 3.7 (3.6-5.2) mmol/L Chloride 102 (100-108) mmol/L Carbon Dioxide 27 (21-32) mmol/L Anion Gap 12.7 (5.0-14.0) mmol/L BUN 19 H (7-18) mg/dL Creatinine 1.0 (0.6-1.0) mg/dL Est Cr Clr Drug Dosing 31.04 mL/min Estimated GFR (MDRD) 53 L (>60) Glucose 96 (74-106) mg/dL Calcium 9.4 (8.5-10.1) mg/dL Total Bilirubin 0.4 (0.2-1.0) mg/dL AST 27 (15-37) U/L ALT 37 (12-78) U/L Alkaline Phosphatase 82 (46-116) U/L Total Protein 6.9 (6.4-8.2) g/dL Albumin 3.1 L (3.4-5.0) g/dL Globulin 3.8 H (2.3-3.5) g/dL Albumin/Globulin Ratio 0.8 L (1.2-2.2) 03/02/19 03/02/19 Range/Units 04:15 04:15 WBC (4.5-11.0) K/uL RBC (3.30-5.50) M/uL Hgb (12.0-15.0) g/dL Hct (36.0-48.0) % MCV (80-98) fL MCH (27-31) pg MCHC (32-36) % Plt Count (150-400) K/uL Neut % (Auto) (36-66) % Lymph % (Auto) (24-44) % [place] % (Auto) (2-6) % Eos % (Auto) (2-4) % Baso % (Auto) (0-1) % PT 31.0 H (9.5-12.0) sec INR 3.06 H (0.80-1.20) Sodium 139 L (140-148) mmol/L Potassium 3.8 (3.6-5.2) mmol/L Chloride 105 (100-108) mmol/L Carbon Dioxide 27 (21-32) mmol/L Anion Gap 10.8 (5.0-14.0) mmol/L BUN 13 (7-18) mg/dL Creatinine 0.7 (0.6-1.0) mg/dL Est Cr Clr Drug Dosing 44.34 mL/min Estimated GFR (MDRD) > 60 (>60) Glucose 102 (74-106) mg/dL Calcium 8.4 L (8.5-10.1) mg/dL Total Bilirubin (0.2-1.0) mg/dL AST (15-37) U/L ALT (12-78) U/L Alkaline Phosphatase (46-116) U/L Total Protein (6.4-8.2) g/dL Albumin (3.4-5.0) g/dL Globulin (2.3-3.5) g/dL Albumin/Globulin Ratio (1.2-2.2) Med Orders - Current: Current Medications Acetaminophen (Tylenol) 650 mg PO Q4H PRN PRN Reason: Pain (Mild 1-3)/fever Last Admin: 03/01/19 21:21 Dose: 650 mg Aspirin (Halfprin) 81 mg PO DAILY [facility] Last Admin: 03/02/19 08:07 Dose: 81 mg Meropenem 1 gm/ Sodium (Chloride) 50 mls @ 100 mls/hr IV Q8HR [facility] Last Admin: 03/02/19 05:09 Dose: 100 mls/hr Vancomycin HCl 1.3 gm/ Sodium (Chloride) 250 mls @ 170 mls/hr IV Q24H [facility] Lactobacillus Rhamnosus (Culturelle) 1 cap PO BID [facility] Last Admin: 03/02/19 08:07 Dose: 1 cap Metoprolol Tartrate (Lopressor) 25 mg PO BID [facility] Last Admin: 03/02/19 08:07 Dose: 25 mg Ondansetron HCl (Zofran) 4 mg IV Q4H PRN PRN Reason: Nausea/Vomiting Oxycodone HCl (Oxycodone) 10 mg PO Q4H PRN PRN Reason: Pain (moderate 4-6) Sodium Chloride (Saline Flush) 10 ml FLUSH ASDIRECTED PRN PRN Reason: Keep Vein Open Last Admin: 03/01/19 12:29 Dose: 10 ml Warfarin Sodium (Coumadin) 4 mg PO DAILY@1300 [facility] Discontinued Medications Sodium Chloride (Normal Saline) 1,000 mls @ 125 mls/hr IV ASDIRECTED [facility] Last Admin: 03/02/19 05:16 Dose: 125 mls/hr Vancomycin HCl 1.8 gm/ Sodium (Chloride) 250 mls @ 167 mls/hr IV ONETIME ONE Stop: 03/01/19 14:29 Last Admin: 03/01/19 12:38 Dose: 167 mls/hr Sodium Chloride (Normal Saline) 100 mls @ 3 mls/sec IV ASDIRECTED [facility] Stop: 03/01/19 13:00 Last Admin: 03/01/19 12:29 Dose: 3 mls/sec Iopamidol (Isovue-300 (61%)) 100 ml IV . DIRECTED PRN PRN Reason: RADIOLOGY EXAM Stop: 03/01/19 13:00 Last Admin: 03/01/19 12:29 Dose: 100 ml Vancomycin Dose Per (Pharmacy) 1 each IV .PHARMACY TO DOSE [facility] Stop: 03/01/19 21:00 Oxycodone HCl (Oxycodone) 5 mg PO Q4H PRN PRN Reason: Pain (moderate 4-6) Last Admin: 03/01/19 16:10 Dose: 5 mg Warfarin Sodium (Coumadin) 7.5 mg PO DAILY@1300 [facility] - Exam Quality Assessment: DVT Prophylaxis General: Alert, Oriented, Cooperative, Mild Distress Lungs: Clear to Auscultation, Normal Respiratory Effort Cardiovascular: Regular Rate, Regular Rhythm GI/Abdominal Exam: Soft, Non-Tender, No Organomegaly, No Distention Skin: Other (Erythema right face with swelling) Sepsis Event Note - Evaluation Sepsis Screening Result: No Definite Risk - Focused Exam Vital Signs: Vital Signs Temp Pulse Pulse Resp BP BP Pulse Ox 03/02/19 08:07 86 186/92 H 03/02/19 07:00 96.1 F 86 18 182/97 H 03/02/19 03:00 97.3 F 85 16 144/82 H 93 L 03/01/19 23:00 99.1 F 81 16 128/57 L 95 Date Exam was Performed: 03/02/19 Time Exam was Performed: 10:09 - Problem List Review Problem List Initiated/Reviewed/Updated: Yes - My Orders Last 24 Hours: My Active Orders 03/01/19 11:50 Patient Status [ADT] Routine Ambulate [RC] QID Height and Weight [RC] DAILY Intake and Output [RC] QSHIFT Notify Provider Vital Signs [RC] ASDIRECTED Up With Assistance [RC] ASDIRECTED Up to Chair [RC] QID VTE/DVT Education [RC] Per Unit Routine Vital Signs [RC] Q4H Acetaminophen [Tylenol] 650 mg PO Q4H PRN Ondansetron [Zofran] 4 mg IV Q4H PRN Sodium Chloride 0.9% [Saline Flush] 10 ml FLUSH ASDIRECTED PRN Peripheral IV Insertion Adult [OM.PC] Routine VTE Pharmacological Contraindications [AST] Per Unit Routine Resuscitation Status Routine 03/01/19 11:54 Peripheral IV Care [RC] . DIRECTED Blood Culture x2 Reflex Set [OM.PC] Stat 03/01/19 12:00 Lactobacillus Rhamnosus GG [Culturelle] 1 cap PO BID 03/01/19 12:05 CULTURE BLOOD [BC] Stat 03/01/19 12:12 CULTURE BLOOD [BC] Stat 03/01/19 14:00 Meropenem [Merrem] 1 gm Sodium Chloride 0.9% [Normal Saline] 50 ml IV Q8HR 03/01/19 16:43 oxyCODONE 10 mg PO Q4H PRN 03/01/19 21:00 Metoprolol Tartrate [Lopressor] 25 mg PO BID 03/01/19 Lunch Regular Diet [DIET] 03/02/19 09:00 Aspirin [Halfprin] 81 mg PO DAILY 03/02/19 10:08 Convert IV to Saline Lock [OM.] Routine 03/02/19 12:00 Vancomycin 1.3 gm Sodium Chloride 0.9% [Normal Saline] 250 ml IV Q24H 03/02/19 13:00 Warfarin [Coumadin] 4 mg PO DAILY@1300 03/03/19 05:00 INR,PT,PROTHROMBIN TIME [COAG] Timed - Plan Plan:: ASSESSMENT AND PLAN CELLULITIS RIGHT FACE- she has failed outpatient management with oral antibiotic therapy. Cellulitis appears to be stable from admission -Blood cultures pending -IV vancomycin and meropenem, pending culture results MAINTENANCE ISSUES -DVT prophylaxis; therapy with warfarin should provide adequate DVT prophylaxis -GI prophylaxis; continue outpatient PPI therapy -Resendiz catheter; not indicated -Nutrition; regular diet -Nicotine dependence; not required CODE STATUS-FULL CODE ADMISSION STATUS-patient will be admitted to inpatient status, expect at least a 2 night hospital stay for evaluation and management of problems as outlined above. At the time of this admission I do not reasonably expected evaluation and management of this problem will require more than a 96 hour hospital stay. DISPOSITION-anticipate discharge to home after the hospital stay. PRIMARY CARE PROVIDER-Dr. Parra
[2019-03-02] MEDS: Acetaminophen 325 MG Tab PO PRN (11:47)
[2019-03-02] MEDS: Vancomycin 1.3 GM in Sodium Chloride 0.9% 250 ML IV SCH (12:13)
[2019-03-02] MEDS ORDERED: Warfarin 2.5 MG Tab PO SCH ×2 (13:00)
[2019-03-02] MEDS: oxyCODONE 5 MG Tab PO PRN (21:49)
[2019-03-03] MEDS: Metoprolol Tartrate 25 MG Tab PO SCH ×2 (08:51→21:48)
[2019-03-03] MEDS: Aspirin 81 MG Tab.EC PO SCH (08:51)
[2019-03-03] MEDS: Lactobacillus Rhamnosus GG (Probiotic) Cap PO SCH ×2 (08:51→21:48)
[2019-03-03] MEDS: Acetaminophen 325 MG Tab PO PRN (09:36)
[2019-03-03] MEDS: Vancomycin 1.3 GM in Sodium Chloride 0.9% 250 ML IV SCH (11:53)
--- NOTE | 2019-03-03 12:03 | PCM.PN ---
- General Info Date of Service: 03/03/19 Subjective Update: shown further improvement over the last 24 hours with decreased swelling and erythema. She is starting to slough some skin with discoloration over the area of cellulitis. Vital signs have been good and she has remained afebrile. - Review of Systems General: Reports: Weakness, Fatigue. Denies: Fever, Chills HEENT: Reports: Headaches, Other (Residual swelling and erythema right face) Pulmonary: Reports: No Symptoms Cardiovascular: Reports: No Symptoms Gastrointestinal: Reports: No Symptoms - Patient Data Vitals - Most Recent: Last Vital Signs Temp 98.5 F 03/03/19 11:14 Pulse 73 03/03/19 11:14 Resp 16 03/03/19 11:14 BP 131/58 L 03/03/19 11:14 Pulse Ox 93 L 03/03/19 11:14 Weight - Most Recent: 197 lb 0.011 oz I&O - Last 24 Hours: Intake & Output 03/02/19 03/03/19 03/03/19 22:59 06:59 14:59 Intake Total 800 100 Output Total 2 Balance 800 100 -2 Lab Results Last 24 Hours: Laboratory Results - last 24 hr 03/03/19 Range/Units 04:54 PT 24.0 H (9.5-12.0) sec INR 2.33 H (0.80-1.20) Luis Results Last 24 Hours: Microbiology 03/01/19 12:05 Aerobic Blood Culture - Preliminary Blood - Arm, Right NO GROWTH AFTER 1 DAY Anaerobic Blood Culture - Preliminary NO GROWTH AFTER 1 DAY 03/01/19 12:12 Aerobic Blood Culture - Preliminary Blood - Arm, Left NO GROWTH AFTER 1 DAY Anaerobic Blood Culture - Preliminary NO GROWTH AFTER 1 DAY Med Orders - Current: Current Medications Acetaminophen (Tylenol) 650 mg PO Q4H PRN PRN Reason: Pain (Mild 1-3)/fever Last Admin: 03/03/19 09:36 Dose: 650 mg Aspirin (Halfprin) 81 mg PO DAILY [facility] Last Admin: 03/03/19 08:51 Dose: 81 mg Meropenem 1 gm/ Sodium (Chloride) 50 mls @ 100 mls/hr IV Q8HR [facility] Last Admin: 03/03/19 06:30 Dose: 100 mls/hr Vancomycin HCl 1.3 gm/ Sodium (Chloride) 250 mls @ 170 mls/hr IV Q24H [facility] Last Admin: 03/03/19 11:53 Dose: 170 mls/hr Lactobacillus Rhamnosus (Culturelle) 1 cap PO BID [facility] Last Admin: 03/03/19 08:51 Dose: 1 cap Metoprolol Tartrate (Lopressor) 25 mg PO BID [facility] Last Admin: 03/03/19 08:51 Dose: 25 mg Ondansetron HCl (Zofran) 4 mg IV Q4H PRN PRN Reason: Nausea/Vomiting Oxycodone HCl (Oxycodone) 10 mg PO Q4H PRN PRN Reason: Pain (moderate 4-6) Last Admin: 03/02/19 21:49 Dose: 10 mg Sodium Chloride (Saline Flush) 10 ml FLUSH ASDIRECTED PRN PRN Reason: Keep Vein Open Last Admin: 03/01/19 12:29 Dose: 10 ml Warfarin Sodium 5 mg/ Warfarin (Sodium 1 mg) 6 mg PO DAILY@1300 [facility] Discontinued Medications Sodium Chloride (Normal Saline) 1,000 mls @ 125 mls/hr IV ASDIRECTED [facility] Last Admin: 03/02/19 05:16 Dose: 125 mls/hr Vancomycin HCl 1.8 gm/ Sodium (Chloride) 250 mls @ 167 mls/hr IV ONETIME ONE Stop: 03/01/19 14:29 Last Admin: 03/01/19 12:38 Dose: 167 mls/hr Sodium Chloride (Normal Saline) 100 mls @ 3 mls/sec IV ASDIRECTED [facility] Stop: 03/01/19 13:00 Last Admin: 03/01/19 12:29 Dose: 3 mls/sec Iopamidol (Isovue-300 (61%)) 100 ml IV . DIRECTED PRN PRN Reason: RADIOLOGY EXAM Stop: 03/01/19 13:00 Last Admin: 03/01/19 12:29 Dose: 100 ml Vancomycin Dose Per (Pharmacy) 1 each IV .PHARMACY TO DOSE [facility] Stop: 03/01/19 21:00 Oxycodone HCl (Oxycodone) 5 mg PO Q4H PRN PRN Reason: Pain (moderate 4-6) Last Admin: 03/01/19 16:10 Dose: 5 mg Warfarin Sodium (Coumadin) 7.5 mg PO DAILY@1300 [facility] Warfarin Sodium (Coumadin) 4 mg PO DAILY@1300 [facility] Last Admin: 03/02/19 13:50 Dose: 4 mg Warfarin Sodium (Coumadin) 6 mg PO DAILY@1300 [facility] - Exam General: Alert, Oriented, Cooperative, Mild Distress Lungs: Clear to Auscultation, Normal Respiratory Effort Cardiovascular: Regular Rate, Regular Rhythm, Murmurs GI/Abdominal Exam: Soft, Non-Tender, No Organomegaly, No Distention Extremities: Non-Tender, No Pedal Edema Skin: Other (Erythema swelling right face, scabbing and discoloration of the skin) Sepsis Event Note - Evaluation Sepsis Screening Result: No Definite Risk - Focused Exam Vital Signs: Vital Signs Temp Pulse Pulse Resp BP BP Pulse Ox 03/03/19 11:14 98.5 F 73 16 131/58 L 93 L 03/03/19 08:51 80 130/63 03/03/19 08:50 98.7 F 03/03/19 07:46 93 18 118/63 93 L 03/03/19 02:27 99.5 F 91 18 152/83 H 93 L Date Exam was Performed: 03/03/19 Time Exam was Performed: 12:03 - Problem List Review Problem List Initiated/Reviewed/Updated: Yes - My Orders Last 24 Hours: My Active Orders 03/02/19 12:00 Vancomycin 1.3 gm Sodium Chloride 0.9% [Normal Saline] 250 ml IV Q24H 03/03/19 13:00 Warfarin [Coumadin] 6 mg PO DAILY@1300 03/04/19 05:00 INR,PT,PROTHROMBIN TIME [[facility]AG] Timed - Plan Plan:: ASSESSMENT AND PLAN CELLULITIS RIGHT FACE-movement over the last 24 hours with decreased swelling and erythema blood cultures remain negative -Blood cultures pending -IV meropenem, pending culture results -Discontinue IV vancomycin MAINTENANCE ISSUES -DVT prophylaxis; therapy with warfarin should provide adequate DVT prophylaxis -GI prophylaxis; continue outpatient PPI therapy -Resendiz catheter; not indicated -Nutrition; regular diet -Nicotine dependence; not required CODE STATUS-FULL CODE ADMISSION STATUS-patient will be admitted to inpatient status, expect at least a 2 night hospital stay for evaluation and management of problems as outlined above. At the time of this admission I do not reasonably expected evaluation and management of this problem will require more than a 96 hour hospital stay. DISPOSITION-anticipate discharge to home after the hospital stay. PRIMARY CARE PROVIDER-Dr. Parra
[2019-03-03] MEDS: oxyCODONE 5 MG Tab PO PRN (19:51)
[2019-03-04] MEDS: Lactobacillus Rhamnosus GG (Probiotic) Cap PO SCH ×2 (08:27→21:37)
[2019-03-04] MEDS: Aspirin 81 MG Tab.EC PO SCH (08:27)
[2019-03-04] MEDS: Metoprolol Tartrate 25 MG Tab PO SCH ×2 (08:28→21:37)
--- NOTE | 2019-03-04 11:58 | PCM.PN ---
- General Info Date of Service: 03/04/19 Subjective Update: Ms. Marie has shown further improvement with less erythema and tenderness of the right face. Continues to experience mild to moderate underlying headache. Vital signs have been stable and she has remained afebrile. Functional Status: Reports: Tolerating Diet, Ambulating, Urinating - Review of Systems General: Reports: Weakness. Denies: Fever, Chills Pulmonary: Reports: No Symptoms Cardiovascular: Reports: No Symptoms Gastrointestinal: Reports: No Symptoms Skin: Reports: Other (Persistent erythema swelling right face improved since yesterday) - Patient Data Vitals - Most Recent: Last Vital Signs Temp 99.1 F 03/04/19 08:07 Pulse 98 03/04/19 08:28 Resp 16 03/04/19 08:07 BP 133/67 03/04/19 08:28 Pulse Ox 92 L 03/04/19 08:07 Weight - Most Recent: 212 lb I&O - Last 24 Hours: Intake & Output 03/03/19 03/04/19 03/04/19 22:59 06:59 14:59 Intake Total 563 100 Balance 563 100 Lab Results Last 24 Hours: Laboratory Results - last 24 hr 03/04/19 Range/Units 04:30 PT 18.1 H (9.5-12.0) sec INR 1.73 H (0.80-1.20) Luis Results Last 24 Hours: Microbiology 03/01/19 12:05 Aerobic Blood Culture - Preliminary Blood - Arm, Right NO GROWTH AFTER 2 DAYS Anaerobic Blood Culture - Preliminary NO GROWTH AFTER 2 DAYS 03/01/19 12:12 Aerobic Blood Culture - Preliminary Blood - Arm, Left NO GROWTH AFTER 2 DAYS Anaerobic Blood Culture - Preliminary NO GROWTH AFTER 2 DAYS Med Orders - Current: Current Medications Acetaminophen (Tylenol) 650 mg PO Q4H PRN PRN Reason: Pain (Mild 1-3)/fever Last Admin: 03/03/19 09:36 Dose: 650 mg Aspirin (Halfprin) 81 mg PO DAILY [facility] Last Admin: 03/04/19 08:27 Dose: 81 mg Meropenem 1 gm/ Sodium (Chloride) 50 mls @ 100 mls/hr IV Q8HR [facility] Last Admin: 03/04/19 05:11 Dose: 100 mls/hr Lactobacillus Rhamnosus (Culturelle) 1 cap PO BID [facility] Last Admin: 03/04/19 08:27 Dose: 1 cap Metoprolol Tartrate (Lopressor) 25 mg PO BID [facility] Last Admin: 03/04/19 08:28 Dose: 25 mg Ondansetron HCl (Zofran) 4 mg IV Q4H PRN PRN Reason: Nausea/Vomiting Oxycodone HCl (Oxycodone) 10 mg PO Q4H PRN PRN Reason: Pain (moderate 4-6) Last Admin: 03/03/19 19:51 Dose: 10 mg Sodium Chloride (Saline Flush) 10 ml FLUSH ASDIRECTED PRN PRN Reason: Keep Vein Open Last Admin: 03/01/19 12:29 Dose: 10 ml Warfarin Sodium (Coumadin) 7.5 mg PO DAILY@1300 [facility] Discontinued Medications Sodium Chloride (Normal Saline) 1,000 mls @ 125 mls/hr IV ASDIRECTED [facility] Last Admin: 03/02/19 05:16 Dose: 125 mls/hr Vancomycin HCl 1.8 gm/ Sodium (Chloride) 250 mls @ 167 mls/hr IV ONETIME ONE Stop: 03/01/19 14:29 Last Admin: 03/01/19 12:38 Dose: 167 mls/hr Sodium Chloride (Normal Saline) 100 mls @ 3 mls/sec IV ASDIRECTED [facility] Stop: 03/01/19 13:00 Last Admin: 03/01/19 12:29 Dose: 3 mls/sec Vancomycin HCl 1.3 gm/ Sodium (Chloride) 250 mls @ 170 mls/hr IV Q24H [facility] Last Admin: 03/03/19 11:53 Dose: 170 mls/hr Iopamidol (Isovue-300 (61%)) 100 ml IV . DIRECTED PRN PRN Reason: RADIOLOGY EXAM Stop: 03/01/19 13:00 Last Admin: 03/01/19 12:29 Dose: 100 ml Vancomycin Dose Per (Pharmacy) 1 each IV .PHARMACY TO DOSE [facility] Stop: 03/01/19 21:00 Oxycodone HCl (Oxycodone) 5 mg PO Q4H PRN PRN Reason: Pain (moderate 4-6) Last Admin: 03/01/19 16:10 Dose: 5 mg Warfarin Sodium (Coumadin) 7.5 mg PO DAILY@1300 [facility] Warfarin Sodium (Coumadin) 4 mg PO DAILY@1300 [facility] Last Admin: 03/02/19 13:50 Dose: 4 mg Warfarin Sodium (Coumadin) 6 mg PO DAILY@1300 [facility] Warfarin Sodium 5 mg/ Warfarin (Sodium 1 mg) 6 mg PO DAILY@1300 [facility] Last Admin: 03/03/19 14:49 Dose: 6 mg - Exam General: Alert, Oriented, Cooperative, Mild Distress Lungs: Clear to Auscultation, Normal Respiratory Effort Cardiovascular: Regular Rate, Regular Rhythm, No Murmurs GI/Abdominal Exam: Soft, Non-Tender, No Organomegaly, No Distention Skin: Other (Erythema swelling right face, some fluctuance to palpation.) Sepsis Event Note - Evaluation Sepsis Screening Result: No Definite Risk - Focused Exam Vital Signs: Vital Signs Temp Pulse Pulse Resp BP BP Pulse Ox 03/04/19 08:28 98 133/67 03/04/19 08:07 99.1 F 98 16 133/67 92 L 03/04/19 03:36 99.5 F 80 18 157/62 H 90 L Date Exam was Performed: 03/04/19 Time Exam was Performed: 11:56 - Problem List Review Problem List Initiated/Reviewed/Updated: Yes - My Orders Last 24 Hours: My Active Orders 03/04/19 10:53 Max Facial Sinus wo Cont [CT] Stat 03/04/19 13:00 Warfarin [Coumadin] 7.5 mg PO DAILY@1300 03/05/19 05:00 INR,PT,PROTHROMBIN TIME [[facility]] Timed - Plan Plan:: ASSESSMENT AND PLAN CELLULITIS RIGHT FACE-further improvement in the last 24 hours. Fluctuance to palpation -Repeat CT scan to evaluate for abscess -Blood cultures pending -IV meropenem, pending culture results MAINTENANCE ISSUES -DVT prophylaxis; therapy with warfarin should provide adequate DVT prophylaxis -GI prophylaxis; continue outpatient PPI therapy -Resendiz catheter; not indicated -Nutrition; regular diet -Nicotine dependence; not required CODE STATUS-FULL CODE ADMISSION STATUS-patient will be admitted to inpatient status, expect at least a 2 night hospital stay for evaluation and management of problems as outlined above. At the time of this admission I do not reasonably expected evaluation and management of this problem will require more than a 96 hour hospital stay. DISPOSITION-anticipate discharge to home after the hospital stay. PRIMARY CARE PROVIDER-Dr. Parra
--- NOTE | 2019-03-04 12:02 | CRLCT ---
INDICATION: Cellulitis, persistent swelling, re-evaluate for abscess. COMPARISON: CT maxillofacial 03/01/2019 and 02/27/2019. TECHNIQUE: A CT volumetric acquisition was performed without IV contrast. The CT data set was processed with 2.5 mm slice thickness and reviewed in an axial, sagittal and coronal plane of reformation on a standard soft tissue and bone algorithm. Please note that all CT scans at this facility use dose modulation, iterative reconstruction, and/or weight-based dosing when appropriate to reduce radiation dose to as low as reasonably achievable. FINDINGS: Since prior exam, there is now bilateral subcutaneous edema in the anterior face in the submandibular and chin region, whereas previously it was only on the right side. Associated skin thickening. Additional increased soft tissue swelling involving both periorbital regions, greater on the right. This left periorbital swelling is new since prior exam. Orbits otherwise appear intact and symmetric. No focal fluid collection to suggest abscess. Prominent bilateral cervical lymph nodes are likely reactive. Visualized intracranial contents are unremarkable. Intracranial vascular calcifications. The salivary glands are normal in appearance. Mild mucosal thickening in the right maxillary sinus. Small polyp or mucous retention cyst in the left maxillary sinus. The paranasal sinuses and mastoid air cells are otherwise clear. No acute fracture. No periapical lucencies about the mandibular teeth. There are no maxillary teeth. IMPRESSION: 1. Increased, now bilateral subcutaneous edema in the submandibular and chin region. 2. Increased bilateral periorbital swelling, new on the left. 3. No evidence of abscess. Please note that all CT scans at this facility use dose modulation, iterative reconstruction, and/or weight-based dosing when appropriate to reduce radiation dose to as low as reasonably achievable. Dictated by Jesusita Kendall MD @ Mar 04 2019 11:45AM Signed by Dr. Jesusita Kendall @ Mar 04 2019 12:00PM
[2019-03-04] MEDS: Warfarin 2.5 MG Tab PO SCH (13:55)
--- NOTE | 2019-03-04 18:53 | PCM.SN ---
- Free Text/Narrative Note: time 184 call from 2 [facility] with concerns of trending lower blood pressure. Patient reports no concerns at this time O: vital signs past p 98 blood pressure 133/67, now pulse 95 resp rate 16 blood pressure 107/59 A: lower blood pressure P: order IV Normal saline 200ml fluid bolus over one hour. continue to monitor vital signs every 4 hours while awake. monitor I and O every shift. Continue present plan of care.
[2019-03-04] MEDS ORDERED: Sodium Chloride 0.9% 200 ML IV SCH (19:00)
[2019-03-05] MEDS: Lactobacillus Rhamnosus GG (Probiotic) Cap PO SCH ×2 (09:04→20:39)
[2019-03-05] MEDS: Aspirin 81 MG Tab.EC PO SCH (09:04)
[2019-03-05] MEDS: Metoprolol Tartrate 25 MG Tab PO SCH ×2 (09:04→20:39)
--- NOTE | 2019-03-05 11:46 | PCM.PN ---
- General Info Date of Service: 03/05/19 Subjective Update: Ms. Marie has shown further improvement since yesterday with less swelling and tenderness to the right face. Vital signs have remained stable and she has been afebrile. Functional Status: Reports: Tolerating Diet, Ambulating, Urinating - Review of Systems General: Denies: Fever, Weakness, Chills Pulmonary: Reports: No Symptoms Cardiovascular: Reports: No Symptoms Gastrointestinal: Reports: No Symptoms - Patient Data Vitals - Most Recent: Last Vital Signs Temp 98.8 F 03/05/19 07:00 Pulse 85 03/05/19 09:04 Resp 16 03/05/19 07:00 BP 135/85 03/05/19 09:04 Pulse Ox 93 L 03/05/19 07:00 Weight - Most Recent: 212 lb I&O - Last 24 Hours: Intake & Output 03/04/19 03/05/19 03/05/19 22:59 06:59 14:59 Intake Total 550 350 500 Balance 550 350 500 Lab Results Last 24 Hours: Laboratory Results - last 24 hr 03/05/19 Range/Units 04:10 PT 16.5 H (9.5-12.0) sec INR 1.57 H (0.80-1.20) Luis Results Last 24 Hours: Microbiology 03/01/19 12:05 Aerobic Blood Culture - Preliminary Blood - Arm, Right NO GROWTH AFTER 3 DAYS Anaerobic Blood Culture - Preliminary NO GROWTH AFTER 3 DAYS 03/01/19 12:12 Aerobic Blood Culture - Preliminary Blood - Arm, Left NO GROWTH AFTER 3 DAYS Anaerobic Blood Culture - Preliminary NO GROWTH AFTER 3 DAYS Med Orders - Current: Current Medications Acetaminophen (Tylenol) 650 mg PO Q4H PRN PRN Reason: Pain (Mild 1-3)/fever Last Admin: 03/03/19 09:36 Dose: 650 mg Aspirin (Halfprin) 81 mg PO DAILY [facility] Last Admin: 03/05/19 09:04 Dose: 81 mg Ciprofloxacin (Ciprofloxacin Hcl) 500 mg PO BID [facility] Lactobacillus Rhamnosus (Culturelle) 1 cap PO BID [facility] Last Admin: 03/05/19 09:04 Dose: 1 cap Metoprolol Tartrate (Lopressor) 25 mg PO BID [facility] Last Admin: 03/05/19 09:04 Dose: 25 mg Metronidazole (Metronidazole) 250 mg PO QID [facility] Ondansetron HCl (Zofran) 4 mg IV Q4H PRN PRN Reason: Nausea/Vomiting Oxycodone HCl (Oxycodone) 10 mg PO Q4H PRN PRN Reason: Pain (moderate 4-6) Last Admin: 03/03/19 19:51 Dose: 10 mg Sodium Chloride (Saline Flush) 10 ml FLUSH ASDIRECTED PRN PRN Reason: Keep Vein Open Last Admin: 03/01/19 12:29 Dose: 10 ml Warfarin Sodium (Coumadin) 7.5 mg PO DAILY@1300 [facility] Last Admin: 03/04/19 13:55 Dose: 7.5 mg Discontinued Medications Sodium Chloride (Normal Saline) 200 mls @ 200 mls/hr IV ASDIRECTED [facility] Stop: 03/04/19 19:59 Meropenem 1 gm/ Sodium (Chloride) 50 mls @ 100 mls/hr IV Q8HR [facility] Last Admin: 03/05/19 06:41 Dose: 100 mls/hr Sodium Chloride (Normal Saline) 1,000 mls @ 125 mls/hr IV ASDIRECTED [facility] Last Admin: 03/02/19 05:16 Dose: 125 mls/hr Vancomycin HCl 1.8 gm/ Sodium (Chloride) 250 mls @ 167 mls/hr IV ONETIME ONE Stop: 03/01/19 14:29 Last Admin: 03/01/19 12:38 Dose: 167 mls/hr Sodium Chloride (Normal Saline) 100 mls @ 3 mls/sec IV ASDIRECTED [facility] Stop: 03/01/19 13:00 Last Admin: 03/01/19 12:29 Dose: 3 mls/sec Vancomycin HCl 1.3 gm/ Sodium (Chloride) 250 mls @ 170 mls/hr IV Q24H [facility] Last Admin: 03/03/19 11:53 Dose: 170 mls/hr Iopamidol (Isovue-300 (61%)) 100 ml IV . DIRECTED PRN PRN Reason: RADIOLOGY EXAM Stop: 03/01/19 13:00 Last Admin: 03/01/19 12:29 Dose: 100 ml Vancomycin Dose Per (Pharmacy) 1 each IV .PHARMACY TO DOSE [facility] Stop: 03/01/19 21:00 Oxycodone HCl (Oxycodone) 5 mg PO Q4H PRN PRN Reason: Pain (moderate 4-6) Last Admin: 03/01/19 16:10 Dose: 5 mg Warfarin Sodium (Coumadin) 7.5 mg PO DAILY@[address] [place] [address] Warfarin Sodium (Coumadin) 4 mg PO DAILY@[address] [place] [address] Last Admin: 03/02/19 13:50 Dose: 4 mg Warfarin Sodium (Coumadin) 6 mg PO DAILY@[address] [place] [address] Warfarin Sodium 5 mg/ Warfarin (Sodium 1 mg) 6 mg PO DAILY@[address] [place] [address] Last Admin: 03/03/19 14:49 Dose: 6 mg - Exam Quality Assessment: DVT Prophylaxis General: Alert, Oriented, Cooperative, Mild Distress Lungs: Clear to Auscultation, Normal Respiratory Effort Cardiovascular: Regular Rate, Regular Rhythm, No Murmurs GI/Abdominal Exam: Soft, Non-Tender, No Organomegaly, No Distention Skin: Other (Improved swelling and erythema of the right face, discoloration and scabbing of the skin) Sepsis Event Note - Evaluation Sepsis Screening Result: No Definite Risk - Focused Exam Vital Signs: Vital Signs Temp Pulse Pulse Resp BP BP BP 03/05/19 09:04 85 135/85 03/05/19 07:00 98.8 F 84 16 135/68 03/05/19 03:00 98.7 F 88 20 134/64 Pulse Ox 03/05/19 09:04 03/05/19 07:00 93 L 03/05/19 03:00 92 L Date Exam was Performed: 03/05/19 Time Exam was Performed: 11:43 - Problem List Review Problem List Initiated/Reviewed/Updated: Yes - My Orders Last 24 Hours: My Active Orders 03/04/19 13:00 Warfarin [Coumadin] 7.5 mg PO DAILY@[facility] 03/05/19 16:00 metroNIDAZOLE 250 mg PO QID 03/05/19 21:00 Ciprofloxacin [Ciprofloxacin HCl] 500 mg PO BID 03/06/19 05:00 INR,PT,PROTHROMBIN TIME [[facility]] Timed - Plan Plan:: ASSESSMENT AND PLAN CELLULITIS RIGHT FACE-further improvement in the last 24 hours. Swelling and erythema, there is scabbing and discoloration of the skin. CT scan of the head showed no evidence of underlying abscess. Blood cultures remain negative -Transition to oral antibiotic therapy with ciprofloxacin and Flagyl -Discontinue IV meropenem MAINTENANCE ISSUES -DVT prophylaxis; therapy with warfarin should provide adequate DVT prophylaxis -GI prophylaxis; continue outpatient PPI therapy -Resendiz catheter; not indicated -Nutrition; regular diet -Nicotine dependence; not required CODE STATUS-FULL CODE ADMISSION STATUS-patient will be admitted to inpatient status, expect at least a 2 night hospital stay for evaluation and management of problems as outlined above. At the time of this admission I do not reasonably expected evaluation and management of this problem will require more than a 96 hour hospital stay. DISPOSITION-anticipate discharge to home after the hospital stay. PRIMARY CARE PROVIDER-Dr. Parra
[2019-03-05] MEDS: Warfarin 2.5 MG Tab PO SCH (13:17)
[2019-03-05] MEDS: metroNIDAZOLE 250 MG Tab PO SCH ×2 (15:45→22:02)
[2019-03-05] MEDS: Acetaminophen 325 MG Tab PO PRN (20:37)
[2019-03-05] MEDS: Ciprofloxacin 500 MG Tab PO SCH (20:39)
[2019-03-06] MEDS: oxyCODONE 5 MG Tab PO PRN ×2 (03:54→08:15)
[2019-03-06] MEDS: metroNIDAZOLE 250 MG Tab PO SCH ×2 (05:35→11:16)
[2019-03-06] MEDS: Lactobacillus Rhamnosus GG (Probiotic) Cap PO SCH (08:33)
[2019-03-06] MEDS: Ciprofloxacin 500 MG Tab PO SCH (08:33)
[2019-03-06] MEDS: Metoprolol Tartrate 25 MG Tab PO SCH (08:34)
[2019-03-06] MEDS: Aspirin 81 MG Tab.EC PO SCH (08:34)
[2019-03-06 08:38] VITALS: BP 127/64; PULSE 71
--- NOTE | 2019-03-06 09:36 | PCM.DCSUM1 ---
Discharge Summary - Hospital Course Brief History: Ms. Marie is an 83-year-old woman who was admitted as a direct admission from the clinic for treatment of right facial cellulitis, having failed outpatient antibiotic therapy. - Discharge Data Discharge Date: 03/06/19 Discharge Disposition: Home, Self-Care 01 Condition: Fair - Referral to [facility] Primary Care Physician: Savana Parra MD - Discharge Diagnosis/Problem(s) (1) Cellulitis SNOMED Code(s): 871922403 ICD Code: L03.90 - CELLULITIS, UNSPECIFIED Status: Acute Current Visit: No Qualifiers: Site of cellulitis: face Qualified Code(s): L03.211 - Cellulitis of face (2) nursing home current use of anticoagulant SNOMED Code(s): 594465941 ICD Code: Z79.01 - [employer] (CURRENT) USE OF ANTICOAGULANTS Status: Chronic Current Visit: No (3) Hx pulmonary embolism SNOMED Code(s): 372732231 ICD Code: Z86.711 - PERSONAL HISTORY OF PULMONARY EMBOLISM Status: Chronic Current Visit: No - Patient Summary/Data Hospital Course: Ms. Marie is an 83-year-old woman who was admitted as a direct admission from the clinic for management of progressive cellulitis of the right face despite oral antibiotic therapy. 6 days ago she injured the inner aspect of her gum on the right side with her dentures. Within 24 hours she developed a red area over her right cheek. 3 days prior to admission she was seen and evaluated in the walk-in clinic and felt to have cellulitis of the right face. She was started on oral antibiotic therapy with clindamycin. The area of erythema expanded and she was seen 2 days prior to admission in the emergency department where she received 1 dose of IV clindamycin as well as IV fluids for hydration. She has remained on oral antibiotic therapy with clindamycin up until the time of admission. She presented to the clinic today and was noted to have progression of the cellulitis despite oral antibiotic therapy. She has been referred for hospital admission and IV antibiotic therapy. On admission she was given IV fluids for hydration as well as IV antibiotic therapy with Pentam and IV vancomycin. Over the next few days of hospitalization there was good improvement in the cellulitis, erythema had extended up into the forehead as well as down below the jawline. Erythema gradually receded with decreased tenderness and pain. Associated with the cellulitis with some skin damage to the face and scabbing. Been stable throughout hospitalization and there was no evidence of sepsis. She was transitioned to oral antibiotic therapy with ciprofloxacin and Flagyl. She will be discharged with an additional 4 days of oral antibiotic therapy with the 2 medications. Follow-up appointment has been scheduled with her primary care provider within 1 week. Activity will be as tolerated and she will resume her usual diet. - Patient Instructions Diet: Usual Diet as Tolerated Activity: As Tolerated Other/Special Instructions: Please schedule follow-up appointment with primary care provider within 1 week - Discharge Plan *PRESCRIPTION DRUG MONITORING PROGRAM REVIEWED*: No *COPY OF PRESCRIPTION DRUG MONITORING REPORT IN PATIENT VENANCIO: No Prescriptions/Med Rec: Ciprofloxacin [Ciprofloxacin HCl] 500 mg PO BID #8 tablet metroNIDAZOLE 250 mg PO QID #16 tablet traMADol [Ultram] 50 mg PO Q4H PRN #20 tab PRN Reason: Pain Home Medications: Home Meds Aspirin 81 mg PO DAILY 03/30/13 [History] Calcium Carbonate 1,000 mg PO BID 03/30/13 [History] Cholecalciferol 1 cap PO DAILY 03/30/13 [History] Cinnamon 1 tab PO ASDIRECTED 03/30/13 [History] Flaxseed 1 tab PO BID 03/30/13 [History] Zxlhdomrqvv-Mcojvetcp-Zlxa-Mn 1 cap PO DAILY 03/30/13 [History] Multiple Vitamin 1 tab PO DAILY 03/30/13 [History] [place] 3 1,000 mg PO DAILY 03/30/13 [History] Red Yeast Rice Extract 600 mg PO DAILY 03/30/13 [History] Warfarin Sodium 7.5 mg PO DAILY 03/30/13 [History] Metoprolol Tartrate 1 tab PO BID 02/27/19 [History] Ciprofloxacin [Ciprofloxacin HCl] 500 mg PO BID #8 tablet 03/06/19 [Rx] metroNIDAZOLE 250 mg PO QID #16 tablet 03/06/19 [Rx] traMADol [Ultram] 50 mg PO Q4H PRN #20 tab 03/06/19 [Rx] Referrals: Savana Parra MD [Primary Care Provider] - 03/11/19 1:30 pm - Discharge Summary/Plan Comment DC Time >30 min.: No - Patient Data Vitals - Most Recent: Last Vital Signs Temp 95.8 F 03/06/19 07:00 Pulse 71 03/06/19 08:34 Resp 18 03/06/19 07:00 BP 127/64 03/06/19 08:34 Pulse Ox 94 L 03/06/19 07:00 Weight - Most Recent: 212 lb I&O - Last 24 hours: Intake & Output 03/05/19 03/06/19 03/06/19 22:59 06:59 14:59 Intake Total 480 Balance 480 Lab Results - Last 24 hrs: Laboratory Results - last 24 hr 03/06/19 Range/Units 05:40 PT 18.3 H (9.5-12.0) sec INR 1.75 H (0.80-1.20) MARLON Results - Last 24 hrs: Microbiology 03/01/19 12:05 Aerobic Blood Culture - Preliminary Blood - Arm, Right NO GROWTH AFTER 4 DAYS Anaerobic Blood Culture - Preliminary NO GROWTH AFTER 4 DAYS 03/01/19 12:12 Aerobic Blood Culture - Preliminary Blood - Arm, Left NO GROWTH AFTER 4 DAYS Anaerobic Blood Culture - Preliminary NO GROWTH AFTER 4 DAYS Med Orders - Current: Current Medications Acetaminophen (Tylenol) 650 mg PO Q4H PRN PRN Reason: Pain (Mild 1-3)/fever Last Admin: 03/05/19 20:37 Dose: 650 mg Aspirin (Halfprin) 81 mg PO DAILY [facility] Last Admin: 03/06/19 08:34 Dose: 81 mg Ciprofloxacin (Ciprofloxacin Hcl) 500 mg PO BID [facility] Last Admin: 03/06/19 08:33 Dose: 500 mg Lactobacillus Rhamnosus (Culturelle) 1 cap PO BID [facility] Last Admin: 03/06/19 08:33 Dose: 1 cap Metoprolol Tartrate (Lopressor) 25 mg PO BID [facility] Last Admin: 03/06/19 08:34 Dose: 25 mg Metronidazole (Metronidazole) 250 mg PO QID [facility] Last Admin: 03/06/19 05:35 Dose: 250 mg Ondansetron HCl (Zofran) 4 mg IV Q4H PRN PRN Reason: Nausea/Vomiting Oxycodone HCl (Oxycodone) 10 mg PO Q4H PRN PRN Reason: Pain (moderate 4-6) Last Admin: 03/06/19 08:15 Dose: 5 mg Sodium Chloride (Saline Flush) 10 ml FLUSH ASDIRECTED PRN PRN Reason: Keep Vein Open Last Admin: 03/01/19 12:29 Dose: 10 ml Warfarin Sodium (Coumadin) 7.5 mg PO DAILY@1300 [facility] Last Admin: 03/05/19 13:17 Dose: 7.5 mg Discontinued Medications Sodium Chloride (Normal Saline) 200 mls @ 200 mls/hr IV ASDIRECTED [facility] Stop: 03/04/19 19:59 Meropenem 1 gm/ Sodium (Chloride) 50 mls @ 100 mls/hr IV Q8HR [facility] Last Admin: 03/05/19 06:41 Dose: 100 mls/hr Sodium Chloride (Normal Saline) 1,000 mls @ 125 mls/hr IV ASDIRECTED [facility] Last Admin: 03/02/19 05:16 Dose: 125 mls/hr Vancomycin HCl 1.8 gm/ Sodium (Chloride) 250 mls @ 167 mls/hr IV ONETIME ONE Stop: 03/01/19 14:29 Last Admin: 03/01/19 12:38 Dose: 167 mls/hr Sodium Chloride (Normal Saline) 100 mls @ 3 mls/sec IV ASDIRECTED [facility] Stop: 03/01/19 13:00 Last Admin: 03/01/19 12:29 Dose: 3 mls/sec Vancomycin HCl 1.3 gm/ Sodium (Chloride) 250 mls @ 170 mls/hr IV Q24H [facility] Last Admin: 03/03/19 11:53 Dose: 170 mls/hr Iopamidol (Isovue-300 (61%)) 100 ml IV . DIRECTED PRN PRN Reason: RADIOLOGY EXAM Stop: 03/01/19 13:00 Last Admin: 03/01/19 12:29 Dose: 100 ml Vancomycin Dose Per (Pharmacy) 1 each IV .PHARMACY TO DOSE [facility] Stop: 03/01/19 21:00 Oxycodone HCl (Oxycodone) 5 mg PO Q4H PRN PRN Reason: Pain (moderate 4-6) Last Admin: 03/01/19 16:10 Dose: 5 mg Warfarin Sodium (Coumadin) 7.5 mg PO DAILY@1300 [facility] Warfarin Sodium (Coumadin) 4 mg PO DAILY@1300 [facility] Last Admin: 03/02/19 13:50 Dose: 4 mg Warfarin Sodium (Coumadin) 6 mg PO DAILY@1300 [facility] Warfarin Sodium 5 mg/ Warfarin (Sodium 1 mg) 6 mg PO DAILY@1300 [facility] Last Admin: 03/03/19 14:49 Dose: 6 mg - Exam General: Reports: Alert, Oriented, Cooperative, Mild Distress Lungs: Reports: Clear to Auscultation, Normal Respiratory Effort Cardiovascular: Reports: Regular Rate, Regular Rhythm, Murmurs GI/Abdominal Exam: Soft, Non-Tender, No Organomegaly, No Distention Extremities: Non-Tender, No Pedal Edema Skin: Reports: Other (Residual swelling with scabbing right face) *Q Meaningful Use (DIS) - VTE *Q VTE Pharmacological Contraindications *Q: High INR Value
[2019-03-06] MEDS: Warfarin 2.5 MG Tab PO SCH (12:10)
== END 2019-03-06 12:30 | disposition home or self-care (01) | DRG 603 ==
LOC: JP.ICU 10:59 → JP.MS 03-03 07:25
PROVIDERS: ADMIT Hospitalist; ATTEND Hospitalist
DX: L03.211 Cellulitis of face (principal); I10 Essential (primary) hypertension; Z79.01 Long term (current) use of anticoagulants; Z86.711 Personal history of pulmonary embolism; Z88.0 Allergy status to penicillin; Z88.8 Allergy status to other drugs, medicaments and biological substances; Z79.82 Long term (current) use of aspirin; Z79.899 Other long term (current) drug therapy
CPT/HCPCS: 36415; 70486; 70487; 70487-26; 80048; 80053; 85025; 85610; 87040; A9270-GY; J2185; J3370; J7030; J7050; Q9967

== ENCOUNTER 2022-01-31 17:39 | Emergency (ER) | payer MEDICARE, BC ==
[2022-01-31 19:10] LABS: ESTIMATED GFR 83 mL/min (>60)
[2022-01-31 19:48] VITALS: BP 166/73; PULSE 75
== END 2022-01-31 20:57 | disposition home or self-care (01) ==
LOC: JP.ED 17:39
DX: N30.91 Cystitis, unspecified with hematuria (principal); U07.1 COVID-19; I10 Essential (primary) hypertension; Z86.711 Personal history of pulmonary embolism; Z88.8 Allergy status to other drugs, medicaments and biological substances; Z88.1 Allergy status to other antibiotic agents; Z88.0 Allergy status to penicillin; Z79.01 Long term (current) use of anticoagulants; Z79.82 Long term (current) use of aspirin; Z79.899 Other long term (current) drug therapy
CPT/HCPCS: 36415; 76830; 76856; 80053; 81001; 85025; 85610; 85730; 99284

== ENCOUNTER 2022-11-26 18:22 | Emergency (ER) | payer MEDICARE, BC ==
[2022-11-26] MEDS ORDERED: Meclizine 25 MG Tab PO ONE (19:03)
[2022-11-26 19:09] LABS: AMORPHOUS SEDIMENT,URINE MANY; APPEARANCE,URINE CLOUDY (CLEAR); BACTERIA,URINE MANY; BILIRUBIN,URINE NEGATIVE (NEGATIVE); COLOR,URINE YELLOW (YELLOW); EPITHELIAL CELLS,URINE FEW; GLUCOSE,URINE NEGATIVE (NEGATIVE); KETONES,URINE NEGATIVE (NEGATIVE); LEUKOCYTE ESTERASE,URINE SMALL (NEGATIVE); MUCUS,URINE RARE; NITRITE,URINE NEGATIVE (NEGATIVE); OCCULT BLOOD,URINE MODERATE (NEGATIVE); PH,URINE 7.5 (5.0-8.0); PROTEIN,URINE 30 mg/dL (NEGATIVE); RBC,URINE 20-30 (0-5); WBC,URINE 20-30 (0-5)
[2022-11-26 19:17] LABS: BASOPHILS ABSOLUTE AUTO 0.04 K/uL (0.00-0.10); BASOPHILS PERCENT AUTO 0.6 % (0.1-1.3); EOSINOPHILS ABSOLUTE AUTO 0.08 K/uL (0.00-0.40); EOSINOPHILS PERCENT AUTO 1.2 % (0.0-5.4); HEMATOCRIT 44.5 % (34.3-46.0); HEMOGLOBIN 14.8 g/dL (11.2-15.5); IMMATURE GRAN PERCENT AUTO 0.2 % (0.0-0.7); LYMPHOCYTES PERCENT AUTO 23.3 % (11.4-47.7); MEAN CORPUSCULAR HEMOGLOBIN 31.9 pg (31.6-35.5); MEAN CORPUSCULAR HGB CONC 33.3 g/dL (31.6-35.5); MEAN CORPUSCULAR VOLUME 95.9 fL (81.4-99.0); MONOCYTES ABSOLUTE AUTO 0.57 K/uL (0.20-0.90); MONOCYTES PERCENT AUTO 8.8 % (3.3-12.6); NEUTROPHILS ABSOLUTE AUTO 4.25 K/uL (1.0-7.6); NEUTROPHILS PERCENT AUTO 65.9 % (40.0-78.1); PLATELET COUNT,PLT 169 K/uL (130-375); RED BLOOD CELL COUNT 4.64 M/uL (3.77-5.24); WHITE BLOOD CELL COUNT,WBC 6.5 K/uL (3.2-11.0)
[2022-11-26 19:19] LABS: IMMATURE GRAN ABSOLUTE AUTO 0.01 K/uL (0.00-0.23)
[2022-11-26 19:39] LABS: A/G RATIO 0.9 (1.2-2.2); ALANINE AMINOTRANSFERASE,ALT 25 U/L (12-78); ALBUMIN 3.1 g/dL (3.4-5.0); ALKALINE PHOSPHATASE 88 U/L (46-116); ASPARTATE AMNIOTRANSFERASE,AST 24 U/L (15-37); BILIRUBIN TOTAL 0.5 mg/dL (0.2-1.0); BLOOD UREA NITROGEN,BUN 21 mg/dL (7-18); C-REACTIVE PROTEIN 0.07 mg/dL (0.0-0.3); CALCIUM 9.1 mg/dL (8.5-10.1); CARBON DIOXIDE,CO2 29 mmol/L (21-32); CHLORIDE,CL 100 mmol/L (100-108); CREATININE 0.9 mg/dL (0.6-1.0); EST CRCL DRUG DOSING (CG) 30.44 mL/min; ESTIMATED GFR 61 mL/min (>60); GLUCOSE RANDOM 114 mg/dL (74-106); POTASSIUM,K 4.1 mmol/L (3.6-5.2); PROTEIN TOTAL,TP 6.4 g/dL (6.4-8.2); SODIUM,NA 136 mmol/L (140-148); TROPONIN I HIGH SENSITIVITY 30.6 pg/mL (<=60.3)
[2022-11-26 19:43] LABS: ANION GAP 11.1 mmol/L (5.0-14.0)
[2022-11-26 19:55] LABS: CORONAVIRUS COVID-19 NAA NEGATIVE (NEGATIVE); INFLUENZA A NAA NEGATIVE (NEGATIVE); INFLUENZA B NAA NEGATIVE (NEGATIVE); RESPIRATORY SYNCYTIAL VIR NAA NEGATIVE (NEGATIVE)
[2022-11-26] MEDS ORDERED: amLODIPine 5 MG Tab PO ONE ×2 (20:01→21:01)
[2022-11-26 21:54] VITALS: BP 176/74; PULSE 55
[2022-11-26] MEDS ORDERED: Cephalexin 250 MG Cap PO ONE (22:18)
== END 2022-11-26 22:38 | disposition home or self-care (01) ==
LOC: JP.ED 18:22
DX: H81.12 Benign paroxysmal vertigo, left ear (principal); I10 Essential (primary) hypertension; N30.00 Acute cystitis without hematuria; Z20.822 Contact with and (suspected) exposure to COVID-19; Z86.16 Personal history of COVID-19; Z79.01 Long term (current) use of anticoagulants; Z79.82 Long term (current) use of aspirin; Z79.899 Other long term (current) drug therapy; Z88.1 Allergy status to other antibiotic agents; Z88.8 Allergy status to other drugs, medicaments and biological substances
CPT/HCPCS: 0241U; 36415; 80053; 81001; 84484; 85025; 86140; 87086; 99284; A9270

== ENCOUNTER 2023-06-19 08:59 | Day surgery (SDC) | payer MEDICARE, BC ==
[2023-06-19 09:17] VITALS: PULSE 64
[2023-06-19] MEDS: Sodium Chloride 0.9% 10 ML Syringe FLUSH PRN (09:19)
[2023-06-19 10:10] VITALS: BP 173/73
== END 2023-06-19 10:29 | disposition home or self-care (01) ==
LOC: JP.SDS 08:59
PROVIDERS: ATTEND Ophthalmology
DX: H25.12 Age-related nuclear cataract, left eye (principal)
CPT/HCPCS: 66984; J3490; V2632

== ENCOUNTER 2023-07-03 08:39 | Day surgery (SDC) | payer MEDICARE, BC ==
[2023-07-03] MEDS: Sodium Chloride 0.9% 10 ML Syringe FLUSH PRN (09:06)
[2023-07-03 10:02] VITALS: BP 112/67; PULSE 71
== END 2023-07-03 10:14 | disposition home or self-care (01) ==
LOC: JP.SDS 08:39
PROVIDERS: ATTEND Ophthalmology
DX: H25.11 Age-related nuclear cataract, right eye (principal); I10 Essential (primary) hypertension
CPT/HCPCS: J3490; V2632